=== PATIENT | female | born 1980 | race African-American/Black ===

== ENCOUNTER 2018-03-26 18:58 | Emergency (ER) | payer SELFPAY ==
[~2018-03-26] VITALS: Ht 172.7 cm; Wt 56.7 kg
[~2018-03-26 18:58] MED LIST: AGM875T PO; CEFD300C PO; CEPH500C PO; FLUO20CA42 PO; NAPR-1071 PO; PHEN1CAP PO
--- OUTSIDE RECORDS SUMMARY | 2018-03-26 19:05 | XMS REPORT | Clinical Summary ---
Author Author [facility] Organization [facility] Address Unknown Phone Unavailable Care Team Providers Care Cement Tester Assistant Name Role Phone PCP Unavailable Source Comments Some departments are not documenting in the electronic medical record. If you do not see the information that you expected, contact Release of Information in the Health Information Management department at [phone] for further assistance in locating additional records.[facility] Allergies Not on File Current Medications Not on file Active Problems Not on file Encounters Date Type Specialty Care Team Description 03/08/2018 Documentation Otolaryngology Elizabet Devlin AUD from Last 3 Months Social History Tobacco Use Types Packs/Day Years Used Date Never Assessed Sex Assigned at Date Recorded Not on file Last Filed Vital Signs Not on file Plan of Treatment Health Maintenance Due Date Last Done Comments PHYSICAL (COMPREHENSIVE) 1986 EXAM PERTUSSIS VACCINE 1990 HIV SCREENING 1994 TETANUS VACCINE 1996 CERVICAL CANCER SCREENING 2009 INFLUENZA VACCINE 08/12/2018 Results Not on filefrom Last 3 Months
--- OUTSIDE RECORDS SUMMARY | 2018-03-26 19:05 | XMS REPORT ---
Author SCOTT [facility] [employer] Address Unknown Phone Unavailable Care Team Providers Care Help Desk Team Leader Name Role Phone SCOTT KOTHARI CP Unavailable Allergies No Known Allergies Problems No Known Problems Medications No Known Medications Results No Known Results Summary Purpose eClinicalWorks Submission
--- OUTSIDE RECORDS SUMMARY | 2018-03-26 19:05 | XMS REPORT ---
Author Author SURYA MCMAHON Organization [employer] Address Unknown Phone Unavailable Care Team Providers Care Gin Feeder Name Role Phone SURYA MCMAHON CP Unavailable Allergies No Known Allergies Problems Problem Type Condition ICD-9 Code Onset Dates Condition Status Assessment Encounter for Depo-Provera contraception V25.49 Active Assessment Encounter for contraceptive management V25.9 Active Medications No Known Medications Procedures Procedure Coding System Code Date DEPO PROVERA (150 MG/ML) CPT-4 J1050 Jun 30, 2015 THER/PROPH/DIAG INJ, SC/IM CPT-4 71230 Jun 30, 2015 URINE TEST CPT-4 87659 Jun 30, 2015 Results Name Result Date Reference Range Unit Abnormality Flag TEST, URINE (IN HOUSE) Summary Purpose eClinicalWorks Submission
--- OUTSIDE RECORDS SUMMARY | 2018-03-26 19:05 | XMS REPORT | Encounter Summary ---
Author Author [facility] Organization [facility] Address Unknown Phone Unavailable Care Team Providers Care Recreation Facility Manager Name Role Phone PCP Unavailable Encounter Details Date Type Department Care Team Description 03/08/2018 Documentation [facility] Elizabet Devlin AUD Physicians - ENT [address]RD FLOOR POD C [address] [place] [address] Social History Tobacco Use Types Packs/Day Years Used Date Never Assessed Sex Assigned at Date Recorded Not on file as of this encounter Progress Notes * Elizabet Devlin AUD - 03/08/2018 2:05 PM CDT Referral from Dr. Altagracia French for a left hearing impairment received. in this encounter Plan of Treatment Not on fileas of this encounter Visit Diagnoses Not on filein this encounter
--- NOTE | 2018-03-26 20:00 | ED General ---
General Chief Complaint: General Problems/Pain Stated Complaint: CHILLS Nursing Triage Note: PT TO ED 5 W/ C/O LT SIDE FACIAL PAIN ONSET 2HRS IV THERAPY NURSE. ALSO C/O CHILLS. PT REPORTS SHE TOOK ASA IV THERAPY NURSE BUT DENIES IMPROVEMENT. Nursing Sepsis Screen: No Definite Risk Source of Information: Patient, Other (friend) Exam Limitations: No Limitations History of Present Illness Date Seen by Provider: March 26, 2018 Time Seen by Provider: 20:00 Initial Comments 37-year-old female patient presents to the emergency department with complaints of left-sided facial pain, nasal congestion, headache, and sinus pressure for approximately 2 hours. Also complains of chills. Timing/Duration: 1-3 Hours Modifying Factors: worse with Medication (no improvement with aspirin) Allergies and Home Medications Allergies Coded Allergies: azithromycin (Verified Allergy, Severe, ANAPHYLAXIS, 03/24/14) Home Medications Cephalexin 500 Mg Capsule, 500 MG PO TID Prescribed by: BROOKS ZAMARRIPA on 03/26/182023 Patient Home Medication List Home Medication List Reviewed: Yes Review of Systems Constitutional: chills; No fever; malaise EENTM: see HPI, ear pain (left ear pain); No hoarseness, No throat pain Respiratory: No cough, No phlegm, No short of breath, No stridor, No wheezing Cardiovascular: no symptoms reported Gastrointestinal: no symptoms reported Genitourinary: no symptoms reported Musculoskeletal: other (bodyaches) Skin: no symptoms reported Psychiatric/Neurological: Headache; Denies Numbness, Denies Paresthesia, Denies Tingling, Denies Weakness All Other Systems Reviewed Negative Unless Noted: Yes (Negative excepted noted.) Past Nqyisbr-Yvjyis-Fsjuzb Hx Past Med/Social Hx: Reviewed Nursing Past Med/Soc Hx Patient Social History Alcohol Use: Denies Use Recreational Drug Use: No Smoking Status: Never a Smoker Recent Foreign Travel: No Contact w/Someone Who Travel: No Recent Infectious Disease Expo: No Recent Hopitalizations: No Physical Abuse: No Sexual Abuse: No Mistreated: No Fear: No Seasonal Allergies Seasonal Allergies: Yes Past Medical History Surgeries: Yes Tubal Ligation Respiratory: No Cardiac: No Neurological: No 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 Gastrointestinal: No Musculoskeletal: No Endocrine: No Cancer: No Psychosocial: No Nursing Suicide Risk Score: 0 Integumentary: No Blood Disorders: No Family Medical History Reviewed Nursing Family Hx No Pertinent Family Hx Physical Exam Vital Signs Capillary Refill : Less Than 3 Seconds General Appearance: No Apparent Distress, WD/WN HEENT: PERRL/EOMI, TMs Normal, Pharynx Normal, Other (positive nasal congestion with sinus tenderness.) Neck: Full Range of Motion, Normal Inspection, Supple, Other (cervical lymphadenopathy, tender to palpation.) Respiratory: Lungs Clear, Normal Breath Sounds, No Accessory Muscle Use, No Respiratory Distress Cardiovascular: Regular Rate, Rhythm, No Edema, No Murmur, Normal Peripheral Pulses Gastrointestinal: Normal Bowel Sounds, No Organomegaly, Non Tender, Soft Back: Normal Inspection Extremity: Normal Capillary Refill, No Pedal Edema Neurologic/Psychiatric: Alert, Oriented x3, No Motor/Sensory Deficits, Normal Mood/Affect, car repairer helper II-XII Norm as Tested Skin: Normal Color, Warm/Dry Progress/Results/Core Measures Suspected Sepsis Recent Fever Within 48 Hours: No Infection Criteria Present: None New/Unexplained Altered Menta: No Sepsis Screen: No Definite Risk SIRS Temperature:98.7 Pulse: 96 Respiratory Rate: 20 Blood Pressure 110 /78 Mean: 89 Results/Orders My Orders Orders - BROOKS ZAMARRIPA Im/Sub-Q Injection Non-Ab Ed (03/26/18 ) Im Injection Antibiotic Ed (03/26/18 ) Vital Signs/I&O Capillary Refill : Less Than 3 Seconds Blood Pressure Mean: 89 Departure Impression Primary Impression: Sinusitis, acute maxillary Qualified Codes: J01.00 - Acute maxillary sinusitis, unspecified Disposition: HOME, SELF-CARE Condition: Improved Departure-Patient Inst. Decision time for Depature: 20:23 Referrals: [facility] (PCP/Family) Primary Care Physician Patient Instructions: Sinusitis, Adult (DC) Add. Discharge Instructions: All discharge instructions reviewed with patient and/or family. Voiced understanding. Medications as instructed. Tylenol extra strength over-the- counter as directed for pain or fever. Ibuprofen 800 mg by mouth every 8 hours as needed for pain or fever. Saline nasal spray and Afrin the counter as needed for symptoms. Follow-up with her family practitioner for recheck as an outpatient if no improvement in symptoms. Return in the emergency department for worsened symptoms or any other concerns. Scripts Cephalexin (Cephalexin) 500 Mg Capsule 500 MG PO TID, #30 CAP 0 Refills Prov: BROOKS ZAMARRIPA 03/26/18 BROOKS ZAMARRIPA March 26, 2018 20:00
[2018-03-26] MEDS ORDERED: KETOROLAC 60 MG/2 ML VIAL IM STA (20:15)
[2018-03-26] MEDS ORDERED: LIDOCAINE 1% INJ 50 ML (XYLOCAINE) VIAL IJ ONE (20:15)
[2018-03-26] MEDS ORDERED: cefTRIAXone 1 GM (ROCEPHIN) VIAL IM ONE (20:15)
[2018-03-26] MEDS ORDERED: LIDOCAINE 1% INJ 20 ML 20 ML VIAL ONE (20:24)
[2018-03-26] MEDS ORDERED: CEPH500C PO (20:24)
[2018-03-26] MEDS ORDERED: RX-HYDROCODONE/APAP 5/325 MG #4 TAB PK PO ONE (20:38)
[2018-03-26] MEDS ORDERED: RX-HYDROCODONE/APAP 5/325 MG #4 TAB PK PO PRN (20:45)
[2018-03-26] MEDS ORDERED: LIDOCAINE 1% INJ 20 ML 20 ML VIAL INJ ONE (20:45)
[2018-03-26 20:48] VITALS: BP 0/0
[2018-03-26] MEDS ORDERED: OXYMETAZOLINE (AFRIN) 0.05% NA 15 ML BTL SCH (21:00)
== END 2018-03-26 20:48 | disposition home or self-care (01) ==
LOC: EDUNIT# 18:58 → ER 19:01
DX: J01.00 Acute maxillary sinusitis, unspecified (principal); Z88.1 Allergy status to other antibiotic agents; Z98.51 Tubal ligation status
CPT/HCPCS: 96372; 99284

== ENCOUNTER 2020-07-03 08:51 | Emergency (ER) | payer MEDICAID ==
[~2020-07-03] VITALS: Ht 170.1 cm; Wt 72.4 kg
[2020-07-03 08:52] VITALS: BP 116/73
[2020-07-03] MEDS ORDERED: diphenhydrAMINE 50 MG/ML INJ (BENADRYL) IM STA (08:57)
--- NOTE | 2020-07-03 08:57 | ED Integumentary General ---
General Chief Complaint: Allergic Reaction Stated Complaint: RASH;FEELS LIKE THROAT IS SWELLING Source: patient Exam Limitations: no limitations History of Present Illness Date Seen by Provider: Jul 03, 2020 Time Seen by Provider: 08:57 Initial Comments 39-year-old female presents with what she feels is a little bit of her throat swelling. Maybe mild rash in her bilateral antecubital spaces. Patient reports that yesterday she had an allergic reaction to unknown substance. She has an EpiPen so used it. She reports that it didn't help but comes in the morning because she feels like his little bit of a rash in her throat. She denies any fever, chills, cough. She does not have any difficulty swallowing or breathing. That have any wheezing, nausea vomiting or diarrhea. She she reports she has environmental allergies to tomatoes bananas eggs, milk and peanuts. Allergies and Home Medications Allergies Coded Allergies: azithromycin (Verified Allergy, Severe, ANAPHYLAXIS, 03/24/14) Home Medications Cephalexin 500 Mg Capsule, 500 MG PO TID Prescribed by: BROOKS ZAMARRIPA on 03/26/182023 Patient Home Medication List Home Medication List Reviewed: Yes Review of Systems Review of Systems Constitutional: No chills, No dizziness, No fever, No weakness EENTM: no symptoms reported Respiratory: No cough, No short of breath, No wheezing Cardiovascular: No chest pain, No palpitations Gastrointestinal: No abdominal pain, No diarrhea, No nausea, No vomiting Genitourinary: no symptoms reported Musculoskeletal: no symptoms reported Skin: see HPI Psychiatric/Neurological: No Symptoms Reported Endocrine: No Symptoms Reported Hematologic/Lymphatic: No Symptoms Reported Past Tgqbpgm-Osybuo-Iqxmsx Hx Past Med/Social Hx: Reviewed Nursing Past Med/Soc Hx Patient Social History Recent Hopitalizations: No Seasonal Allergies Seasonal Allergies: Yes Past Medical History Surgeries: Yes Tubal Ligation Respiratory: No Cardiac: No Neurological: No 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 Gastrointestinal: No Musculoskeletal: No Endocrine: No Cancer: No Psychosocial: No Integumentary: No Blood Disorders: No Family Medical History No Pertinent Family Hx Physical Exam Vital Signs Vital Signs - First Documented 07/03/20 08:52 Temp 36.4 Pulse 72 Resp 16 B/P (MAP) 116/73 (87) Pulse Ox 99 O2 Delivery Room Air Capillary Refill : General Appearance: WD/WN, no apparent distress HEENT: PERRL/EOMI, normal ENT inspection, pharynx normal Neck: full range of motion, supple Cardiovascular: normal peripheral pulses, regular rate, rhythm, no edema Respiratory: lungs clear, normal breath sounds, no respiratory distress, no accessory muscle use Gastrointestinal: non tender, soft Back: normal inspection Extremities: normal range of motion, non-tender, normal inspection Neurologic/Psychiatric: associate vice president II-XII nml as tested, no motor/sensory deficits, alert, normal mood/affect, oriented x 3 Skin: normal color, rash (very minimal rash the antecubital space) Lymphatic: no adenopathy Progress/Results/Core Measures Results/Orders My Orders Orders - ALINE JOHNSON DO Diphenhydramine Injection (Benadryl Inje (07/03/20 08:57) Dexamethasone Injection (Decadron Inje (07/03/20 09:00) Medications Given in ED Current Medications Medications Dose Ordered Sig/Osmani Route Start Time Stop Time Status Last Admin Dose Admin Dexamethasone Sodium Phosphate 10 mg ONCE ONCE IM 07/03/20 09:00 07/03/20 09:02 DC 07/03/20 09:09 10 MG Vital Signs/I&O 07/03/20 08:52 Temp 36.4 Pulse 72 Resp 16 B/P (MAP) 116/73 (87) Pulse Ox 99 O2 Delivery Room Air Progress Progress Note : Time: 09:20 Progress Note Patient reports improvement in her symptoms following treatment. I recommend she is Benadryl 50 mg every 4-6 hours today. We'll send in a new EpiPen prescription for her. She is stable and will be discharged home Departure Impression Primary Impression: Allergic reaction Qualified Codes: T78.40XA - Allergy, unspecified, initial encounter Disposition: HOME, SELF-CARE Condition: Stable Departure-Patient Inst. Referrals: [facility] (PCP/Family) Primary Care Physician Patient Instructions: Skin Rash (DC), Anaphylaxis (DC) Add. Discharge Instructions: Use Benadryl 50 mg every 4-6 hours today and as needed All discharge instructions reviewed with patient and/or family. Voiced understanding. Scripts Epinephrine (Epipen 2-Sam) 0.3 Mg/0.3 Ml Auto.injct 0.3 MG IJ ONCE, #1 PKT Prov: ALINE JOHNSON DO 07/03/20 ALINE JOHNSON DO Jul 03, 2020 08:57
[2020-07-03] MEDS ORDERED: EPIN0.3P3 IJ (09:23)
== END 2020-07-03 09:30 | disposition home or self-care (01) ==
LOC: EDUNIT# 08:51 → ER FS 08:52
DX: T78.40XA Allergy, unspecified, initial encounter (principal); Z88.1 Allergy status to other antibiotic agents
CPT/HCPCS: 99284

== ENCOUNTER 2020-08-10 23:31 | Emergency (ER) | payer MEDICAID ==
[~2020-08-10] VITALS: Ht 172.7 cm; Wt 73.8 kg
[~2020-08-10 23:31] MED LIST changes: +EPIN0.3P3 IJ
[2020-08-10] MEDS ORDERED: methylPREDNISolone 125 MG (Solu-MEDROL) VIAL IVP ONE (23:45)
[2020-08-10] MEDS ORDERED: diphenhydrAMINE 50 MG/ML INJ (BENADRYL) IVP ONE (23:45)
[2020-08-10] MEDS ORDERED: EPINEPHrine INJECTION 1 MG/ML AMP IM ONE (23:45)
[2020-08-10] MEDS ORDERED: FAMOTIDINE 20MG/2ML IV (PEPCID) IVP ONE (23:45)
--- NOTE | 2020-08-10 23:46 | ED General ---
General Stated Complaint: SWOLLEN NECK Source of Information: Patient Exam Limitations: No Limitations History of Present Illness Date Seen by Provider: Aug 10, 2020 Time Seen by Provider: 23:31 Initial Comments patient presents to ER by private conveyance from home with chief complaint that she just started having some swelling in her throat and tongue and difficulty swallowing secretions. Not having any difficulty breathing yet. 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 She is not on RUBEN inhibitor's or ARBs. She does have epinephrine pens at home but she did not use them instead opting to come up.. She has not been on steroids recently. She has no history of asthma or COPD. She follows with [facility] for primary care. Allergies and Home Medications Allergies Coded Allergies: azithromycin (Verified Allergy, Severe, ANAPHYLAXIS, 03/24/14) Home Medications Cephalexin 500 Mg Capsule, 500 MG PO TID Prescribed by: BROOKS ZAMARRIPA on 03/26/182023 Epinephrine 0.3 Mg/0.3 Ml Auto.injct, 0.3 MG IJ ONCE Prescribed by: ALINE JOHNSON on 07/03/20 09 Patient Home Medication List Home Medication List Reviewed: Yes Review of Systems Review of Systems Constitutional: No chills, No diaphoresis EENTM: No ear discharge, No ear pain Respiratory: see HPI; No cough, No short of breath Cardiovascular: No chest pain, No palpitations, No syncope Gastrointestinal: No abdominal pain, No constipation, No diarrhea Genitourinary: No discharge, No dysuria Musculoskeletal: No back pain, No joint pain All Other Systems Reviewed Negative Unless Noted: Yes Past Ytukqca-Qqkivn-Uyhzyw Hx Patient Social History Alcohol Use: Denies Use Recreational Drug Use: No 2nd Hand Smoke Exposure: No Recent Foreign Travel: No Contact w/Someone Who Travel: No Recent Hopitalizations: No Seasonal Allergies Seasonal Allergies: Yes Past Medical History Surgeries: Yes Hysterectomy, Tubal Ligation Respiratory: No Cardiac: No Neurological: No 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 oz. 56.694671im; 25.00 BMI Method:Stated General Appearance: WD/WN, Mild Distress Eyes: Bilateral Eye Normal Inspection, Bilateral Eye PERRL, Bilateral Eye EOMI HEENT: PERRL/EOMI; No Moist Mucous Membranes; Other (swollen tongue and soft tissues of the pharynx) Neck: Full Range of Motion, Non Tender, Supple Respiratory: No Accessory Muscle Use, No Respiratory Distress Cardiovascular: Regular Rate, Rhythm, No Edema, Normal Peripheral Pulses Neurologic/Psychiatric: Alert, Oriented x3, No Motor/Sensory Deficits Skin: Normal Color, Warm/Dry Progress/Results/Core Measures Suspected Sepsis SIRS Temperature: Pulse: Respiratory Rate: Blood Pressure / Mean: Results/Orders My Orders Orders - JOSE AMAYA Epinephrine 1 Mg Injection (Adrenalin I (08/10/20 23:45) Methylprednisolone Sod Succ (Solu-Medrol (08/10/20 23:45) Diphenhydramine Injection (Benadryl Inje (08/10/20 23:45) Famotidine Injection (Pepcid Injection) (08/10/20 23:45) Ed Iv/Invasive Line Start (08/10/20 23:47) Ns Iv 500 Ml (Sodium Chloride 0.9%) (08/10/20 23:47) Medications Given in ED Current Medications Medications Dose Ordered Sig/Osmani Route Start Time Stop Time Status Last Admin Dose Admin Diphenhydramine HCl 25 mg ONCE ONCE IVP 08/10/20 23:45 08/10/20 23:46 DC 08/10/20 23:55 25 MG Epinephrine HCl 0.3 mg ONCE ONCE IM 08/10/20 23:45 08/10/20 23:46 DC 08/10/20 23:58 0.3 MG Famotidine 20 mg ONCE ONCE IVP 08/10/20 23:45 08/10/20 23:46 DC 08/10/20 23:57 20 MG Methylprednisolone Sodium Succinate 125 mg ONCE ONCE IVP 08/10/20 23:45 08/10/20 23:46 DC 08/10/20 23:53 125 MG Sodium Chloride 500 ml @ 0 mls/hr Q0M ONCE IV 08/10/20 23:47 08/10/20 23:48 DC 08/10/20 23:55 0 MLS/HR Vital Signs/I&O 08/10/20 23:36 Temp 37.0 Pulse 74 Resp 18 B/P (MAP) 126/74 (91) Pulse Ox 99 O2 Delivery Room Air Capillary Refill : Progress Note #1: Time: 23:46 Progress Note The patient appears to be experiencing angioedema probably related to food items. We'll give her epinephrine she is having some difficulty swallowing secretions but she has no immediately impending airway rise at this time. She says she responds well to epinephrine in the past. We will establish an IV and give her some IV fluids as well as Benadryl, Solu-Medrol and Pepcid. We do not have second generation antihistamines available at this ER at this time. We'll keep her on the monitor. Progress Note #2: Time: 00:12 Progress Note The patient tolerated the first round of medicines just fine and is resting com fortably. Her tongue is about the same size as when she got here. There is no larger. She is not having any difficulty breathing. We'll continue to monitor at this time. Progress Note #3: Time: 00:34 Progress Note patient states she feels much better and is back to normal. She would like to go home and sleep in her own bed. She has epinephrine autoinjector's at home. We have discussed return precautions. We have offered her a longer observation stay in the ER and she says she would be okay going home as she has family there she denies needing a refill on her epinephrine.. Departure Impression Primary Impression: Angioedema Qualified Codes: T78.3XXA - Angioneurotic edema, initial encounter Disposition: 01 HOME, SELF-CARE Condition: Improved Departure-Patient Inst. Decision time for Depature: 00:35 Referrals: [facility] [place] [place] (PCP/Family) Primary Care Physician Patient Instructions: Angioedema (DC) Add. Discharge Instructions: Plan to follow up with your primary care doctor to review your medications and allergies. If your swelling comes back then you need to use your epinephrine autoinjector and return to the nearest ER. For the next week and would like you to take Pepcid 20 mg twice a day. Loratadine or Zyrtec one tablet (10 mg) daily for the next week. Benadryl 1-2 tablets every 6 hours as necessary for swelling or itching. Work/School Note: Work Release Form Date Seen in the Emergency Department: Aug 11, 2020 Return to Work: Aug 12, 2020 Restrictions: No Restrictions JOSE AMAYA Aug 10, 2020 23:46
[2020-08-10] MEDS ORDERED: NS IV 500 ML 500 ML IV ONE (23:47)
[2020-08-11 00:41] VITALS: BP 112/66
== END 2020-08-11 00:41 | disposition home or self-care (01) ==
LOC: EDUNIT# 23:31 → ER FS 23:34
DX: T78.3XXA Angioneurotic edema, initial encounter (principal); Z88.1 Allergy status to other antibiotic agents

== ENCOUNTER 2021-03-16 04:35 | Emergency (ER) | payer MEDICAID ==
[~2021-03-16] VITALS: Ht 172.7 cm; Wt 75.4 kg
[2021-03-16 04:48] VITALS: BP 132/68
[2021-03-16] MEDS ORDERED: EPIN0.3P3 IJ (04:59)
[2021-03-16] MEDS ORDERED: FAMO-119 PO (04:59)
--- NOTE | 2021-03-16 04:59 | ED General ---
General Chief Complaint: Allergic Reaction Stated Complaint: HIVES Nursing Triage Note: pt states she woke up this am with hives, lips noted to be swollen with hives throughout body. Pt able to speak without diffuculty. Nursing Sepsis Screen: No Definite Risk Source of Information: Patient Exam Limitations: No Limitations History of Present Illness Date Seen by Provider: March 16, 2021 Time Seen by Provider: 04:45 Initial Comments Patient is a 40-year-old -[place] female presents presents with urticaria to her torso x2 days with hives to her face and angioedema of her upper lip starting this evening. Patient does not take any medications. She denies new food or allergen exposures. She does not have any known allergies. She is not short of breath. She denies airway swelling or wheezing. Hives are described as painful itching and uncomfortable. No medications or therapies taken prior to ED arrival. Timing/Duration: 1-2 Days Severity: Moderate Modifying Factors: improves with Other Associated Systoms: Other Allergies and Home Medications Allergies Coded Allergies: azithromycin (Verified Allergy, Severe, ANAPHYLAXIS, 03/24/14) Home Medications Cephalexin 500 Mg Capsule, 500 MG PO TID Prescribed by: BROOKS ZAMARRIPA on 03/26/182023 Epinephrine 0.3 Mg/0.3 Ml Auto.injct, 0.3 MG IJ ONCE Prescribed by: ALINE JOHNSON on 07/03/20 0923 Patient Home Medication List Home Medication List Reviewed: Yes Review of Systems Review of Systems Constitutional: see HPI EENTM: see HPI Respiratory: see HPI Cardiovascular: see HPI Gastrointestinal: see HPI Genitourinary: see HPI Musculoskeletal: see HPI Skin: see HPI Psychiatric/Neurological: See HPI Hematologic/Lymphatic: See HPI Immunological/Allergic: see HPI All Other Systems Reviewed Negative Unless Noted: Yes Past Weejqpl-Ekfhcg-Ncjuya Hx Past Med/Social Hx: Reviewed Nursing Past Med/Soc Hx Patient Social History Alcohol Use: Denies Use Smoking Status: Never a Smoker 2nd Hand Smoke Exposure: No Recent Infectious Disease Expo: No Recent Hopitalizations: No Seasonal Allergies Seasonal Allergies: Yes Past Medical History Surgeries: Yes Hysterectomy, Tubal Ligation Respiratory: No Cardiac: No Neurological: No CERTIFIED INDUSTRIAL HYGIENIST History: Tubal Ligation Genitourinary: No Gastrointestinal: No Musculoskeletal: No Endocrine: No HEENT: No Cancer: No Psychosocial: No Integumentary: No Blood Disorders: No Family Medical History No Pertinent Family Hx Physical Exam Vital Signs Vital Signs - First Documented 03/16/21 04:48 Temp 36.0 Pulse 79 Resp 18 B/P (MAP) 132/68 (89) Pulse Ox 97 O2 Delivery Room Air Capillary Refill : Less Than 3 Seconds Height, Weight, BMI Height: 5'8.00" Weight: 125lbs. oz. 56.037451ar; 25.00 BMI Method:Stated General Appearance: No Apparent Distress Eyes: Bilateral Eye Normal Inspection, Bilateral Eye PERRL, Bilateral Eye EOMI HEENT: PERRL/EOMI, Pharynx Normal, Moist Mucous Membranes, Other (Angioedema of upper lip) Neck: Normal Inspection, Non Tender, Supple Respiratory: Lungs Clear, Normal Breath Sounds Cardiovascular: Regular Rate, Rhythm Gastrointestinal: Non Tender, Soft Back: No CVA Tenderness Extremity: Non Tender, No Calf Tenderness Skin: Other (Diffuse blotchy urticaria of torso.) Focused Exam Sepsis Stage: Ruled Out Progress/Results/Core Measures Suspected Sepsis Recent Fever Within 48 Hours: No Infection Criteria Present: None New/Unexplained Altered Menta: No Sepsis Screen: No Definite Risk SIRS Temperature: Pulse: 79 Respiratory Rate: 18 Blood Pressure 132 /68 Mean: 89 Results/Orders My Orders Orders - PEARL STEWART DO Dexamethasone Injection (Decadron Inje (03/16/21 05:00) Famotidine Tablet (Pepcid Tablet) (03/16/21 05:00) Vital Signs/I&O 03/16/21 04:48 Temp 36.0 Pulse 79 Resp 18 B/P (MAP) 132/68 (89) Pulse Ox 97 O2 Delivery Room Air Capillary Refill : Less Than 3 Seconds Blood Pressure Mean: 89 Departure Communication (Admissions) Patient with urticaria and angioedema of upper lip no known source. No oral or posterior pharyngeal involvement. No shortness of breath or wheezing. Patient is not currently on any medications. Decadron and Pepcid given. Patient with partial improvement of symptoms while in the emergency department. We will con tinue supportive care with close monitoring PCP follow-up. Return precautions reviewed. Patient verbalizes understanding agreement discharge instructions prior to departure. Impression Primary Impression: Angioedema Additional Impression: Urticaria Disposition: 01 HOME, SELF-CARE Condition: Stable Departure-Patient Inst. Decision time for Depature: 04:58 Referrals: [facility] (PCP/Family) Primary Care Physician Patient Instructions: Angioedema, Hives (DC) Add. Discharge Instructions: Please take newly prescribed medications as directed. If you develop airway swelling or shortness of breath use the epinephrine injector and then call 911. Follow-up with your PCP in 1 to 2 days for reevaluation. All discharge instructions reviewed with patient and/or family. Voiced understan netta. Scripts Prednisone (Prednisone) 20 Mg Tab 40 MG PO DAILY, #6 TAB 0 Refills Prov: PEARL STEWART DO 03/16/21 Cetirizine HCl (Zyrtec) 10 Mg Capsule 10 MG PO BID, #10 CAP Prov: PEARL STEWART DO 03/16/21 Famotidine (Pepcid) 20 Mg Tablet 20 MG PO Q12H, #10 TAB Prov: PEARL STEWART DO 03/16/21 Epinephrine (Epipen 2-Sam) 0.3 Mg/0.3 Ml Auto.injct 0.3 MG IJ UD, #1 ML Prov: PEARL STEWART DO 03/16/21 Work/School Note: Family Work Note Patient Received Medical Care In the Emergency Department On: March 16, 2021 Patient Will Be Able to Return to Work/School On: March 18, 2021 Patient Restrictions: No restrictions PEARL STEWART DO March 16, 2021 04:59
[2021-03-16] MEDS ORDERED: CETI10CA PO (05:00)
[2021-03-16] MEDS ORDERED: FAMOTIDINE 20 MG (PEPCID) TABLET PO ONE (05:00)
[2021-03-16] MEDS ORDERED: PRD20T PO (05:00)
== END 2021-03-16 05:20 | disposition home or self-care (01) ==
LOC: EDUNIT# 04:35 → ER FS 04:38
DX: T78.3XXA Angioneurotic edema, initial encounter (principal); Z88.1 Allergy status to other antibiotic agents
CPT/HCPCS: 99284